=== PATIENT | female | born 1985 | race Caucasian/White ===

== ENCOUNTER 2018-10-25 18:46 | Emergency (ER) | payer MEDICAID ==
[2018-10-25] MEDS ORDERED: Morphine 2 MG/ML Syringe ONE (19:37)
[2018-10-25 20:55] VITALS: BP 120/68
--- NOTE | 2018-10-25 23:46 | ER ---
HISTORY OF PRESENT ILLNESS: A 33-year-old lady who comes in with her and mother with complaints of chest pressure that goes all the way across her chest and down into the upper left arm. The patient states this started about an hour ago as they were driving home. They were [place] when she just started getting these symptoms. She states that she is feeling nauseated a little. She is sweaty. She really denies chest pain, but states it is pressure. She rates her pain upon arrival, at least 4/10. The patient denies any history of coronary artery disease. She is a smoker. She is worried that she is having a heart attack. Her mother who was here with her had a heart attack in July that required 1 stent. The patient tells me her symptoms are exactly like her mother's. The patient denies any problems with vomiting or headache. PAST MEDICAL HISTORY: 1. History of asthma. 2. Migraines. 3. Upper respiratory infections. 4. Depression. The patient quit taking her depression medicine a few months ago, telling me it was Lexapro. They moved and she could not find it. OBJECTIVE: GENERAL APPEARANCE: The patient is awake and alert. She is in mild respiratory distress. VITAL SIGNS: Reviewed. Initial blood pressure is 137/77, pulse is 117. INITIAL TREATMENT: 4 baby aspirin were given to the patient and an EKG was obtained showing a tachycardic rhythm with no obvious ST elevation or depression. At this point, further physical exam was performed. HEENT: Oral mucous membranes moist. Tonsils not enlarged or injected. Pharynx not inflamed. NECK: Supple. LUNGS: Clear to auscultation. CARDIAC: Heart sounds distinct. S1, S2 present. Regular rate. No murmurs. SKIN: Warm and dry. On further questioning reveals that the patient was just coming home, they went to get a puppy, and she was relaxing with the puppy when her symptoms began. LAB AND X-RAY: CBC shows a slightly elevated white count of 12.5. The patient is on amoxicillin for an ear infection. Comprehensive metabolic panel is unremarkable. Troponin is normal. Further questioning at this point after assuring the patient that her cardiac workup was fine reveals that she did take 2 espressos today as well as an another power drink in addition to drinking multiple cups of coffee. This has resulted in caffeine overdose. Earlier on in the treatment plan, the patient was given 4 baby aspirin as previously mentioned. We also did give nitroglycerin x1 and morphine 1 mg. This brought the patient's discomfort from 4 or 5 down to 2 and while awaiting for test results, she states that she has minimal discomfort. The patient states that she is feeling very well. DIAGNOSIS: Caffeine overload. TREATMENT PLAN: The patient is to go home with her . No caffeine products tonight. She is to drink water. I advised the patient to have just a couple of cups of caffeinated coffee in the morning and activity should be as tolerated. Her symptoms should have largely resolved by morning. If her symptoms do not totally resolve or if any new symptoms develop, they are to call back or come back as soon as possible for further evaluation. They only live 3 blocks away. If her symptoms do resolve, a recheck should be in the clinic next Monday. The patient and her have no further questions. SHWETA/MIGUEL /[id number]
--- NOTE | 2018-10-26 07:13 | CR ---
DATE OF SERVICE: 10/25/2018 CLINICAL DATA: Chest pressure. PORTABLE AP CHEST: Comparison is made to a prior exam dated 06/14/2018. The patient is in an apical lordotic position. The heart size is normal. The lungs are clear. No pneumothorax. No pleural effusions. No evidence of acute intrathoracic disease. [id number] MTDD
== END 2018-10-25 20:19 | disposition home or self-care (01) ==
LOC: LB.ED 18:46
DX: T43.611A Poisoning by caffeine, accidental (unintentional), initial encounter (principal); R07.89 Other chest pain; J45.909 Unspecified asthma, uncomplicated; F32.9 Major depressive disorder, single episode, unspecified; F17.290 Nicotine dependence, other tobacco product, uncomplicated; Z79.899 Other long term (current) drug therapy; Z82.49 Family history of ischemic heart disease and other diseases of the circulatory system
CPT/HCPCS: 36415; 71045; 80053; 84484; 85025; 93005; 99285-25; J2270

== ENCOUNTER 2021-04-07 15:35 | Emergency (ER) | payer MEDICAID ==
[2021-04-07 15:49] VITALS: BP 123/89; PULSE 91
[2021-04-07] MEDS: LORazepam 1 MG Tab ONE ×2 (16:24→17:38)
[2021-04-07] MEDS: LORazepam 1 MG Tab PO ONE ×2 (16:25→17:23)
--- NOTE | 2021-04-07 18:28 | EDM.PDOCBH ---
ED HPI GENERAL MEDICAL PROBLEM - General Chief Complaint: Behavioral/Psych Stated Complaint: MENTAL HEALTH Time Seen by Provider: 04/07/21 15:45 - History of Present Illness INITIAL COMMENTS - FREE TEXT/NARRATIVE: Pt is here with her Mother with C/O suicidal thoughts. She tells me she does have a plan, but starts to cry and cannot continue. She is given Ativan 1 mg po, and is later able to tell me she has tried to commit suicide in the past. She is stressed out about marital issues and may be going thru a divorce soon. She has hx of cutting behavior, but not recently. - Related Data Allergies Allergy/AdvReac Type Severity Reaction Status Date / Time Tramadol Allergy Itching Uncoded 04/07/21 15:41 Home Meds: Home Meds estradioL [Estradiol] 0.5 mg PO DAILY 06/14/18 [History] Albuterol [Ventolin HFA] 1 - 2 puff INH Q4HR 06/16/18 [History] Cyclobenzaprine [Flexeril] 10 mg PO TID 04/07/21 [History] FLUoxetine HCl [Prozac] 10 mg PO DAILY 04/07/21 [History] Past Medical History HEENT History: Reports: None Cardiovascular History: Reports: None Respiratory History: Reports: Asthma Genitourinary History: Reports: None SOFTWARE DEVELOPMENT SPECIALIST History: Reports: Endometriosis, Musculoskeletal History: Reports: Back Pain, Chronic Neurological History: Reports: Migraines Psychiatric History: Reports: Anxiety, Depression - Past Surgical History HEENT Surgical History: Reports: Tonsillectomy Cardiovascular Surgical History: Reports: None Respiratory Surgical History: Reports: None GI Surgical History: Reports: Appendectomy, Cholecystectomy, Other (See Below) Other GI Surgeries/Procedures: Abdominal Laproscopies Female Surgical History: Reports: Hysterectomy, Salpingo-Oophorectomy Musculoskeletal Surgical History: Reports: None Social & Family History - Family History Family Medical History: No Pertinent Family History - Tobacco Use Tobacco Use Status *Q: Current Every Day Tobacco User Years of Tobacco use: 20 Packs/Tins Daily: 0.5 - Caffeine Use Caffeine Use: Reports: Energy Drinks, Soda Caffeine Use Comment: pt had coffee, and energy drink today, pt states she had a double shot of expresso today, rockstar drink - Recreational Drug Use Recreational Drug Use: Yes Drug Use in Last 12 Months: Yes Recreational Drug Type: Reports: Marijuana/Hashish Recreational Drug Use Frequency: Daily ED ROS GENERAL - Review of Systems Review Of Systems: Comprehensive ROS is negative, except as noted in HPI. Psychiatric: Reports: Suicidal Ideation ED EXAM, BEHAVIORAL HEALTH - Physical Exam Exam: See Below General Appearance: Moderate Distress, Other (easily crying and looking down alot.) COURSE, BEHAVIORAL HEALTH COMP - Course Vital Signs: Last Vital Signs Temp 99.3 F 04/07/21 15:46 Pulse 91 04/07/21 15:46 Resp 18 04/07/21 15:46 BP 123/89 04/07/21 15:46 Pulse Ox 97 04/07/21 15:46 Orders, Labs, Meds: Active Orders 24 hr Category Date Time Status Suicide Precautions [RC] .Per Facility Policy Care 04/07/21 16:36 Active Laboratory Tests 04/07/21 04/07/21 04/07/21 Range/Units 16:04 16:04 16:20 WBC 10.1 (4.0-11.0) K/uL RBC 4.67 (3.80-5.80) M/uL Hgb 14.6 (11.5-16.5) g/dL Hct 44.2 (37.0-47.0) % MCV 95 (76-96) fL MCH 31.3 (27.0-32.0) pg MCHC 33.0 (31.0-35.0) g/dL RDW 13.3 (11.0-16.0) % Plt Count 254 (150-500) K/uL MPV 10.9 H (6.0-10.0) fL Neut % (Auto) 63.4 (45.0-70.0) % Lymph % (Auto) 30.0 (20.0-40.0) % [place] % (Auto) 5.8 (3.0-10.0) % Eos % (Auto) 0.5 L (1.0-5.0) % Baso % (Auto) 0.3 (0.0-0.5) % Neut # (Auto) 6.41 (2.00-7.50) K/uL Lymph # (Auto) 3.04 (1.50-4.00) K/uL [place] # (Auto) 0.59 (0.20-0.80) K/uL Eos # (Auto) 0.05 (0.04-0.40) K/uL Baso # (Auto) 0.03 (0.02-0.10) K/uL Sodium (136-145) mmol/L Potassium (3.5-5.1) mmol/L Chloride (98-107) mmol/L Carbon Dioxide (21.0-32.0) mmol/L Anion Gap (5.0-15.0) mmol/L BUN (8-26) mg/dL Creatinine (0.55-1.02) mg/dL Est Cr Clr Drug Dosing Estimated GFR (MDRD) (>60) MLS/MIN BUN/Creatinine Ratio (6-25) Glucose (74-100) mg/dL Calcium (8.5-10.1) mg/dL Total Bilirubin (0.0-1.0) mg/dL AST (15-37) U/L ALT (12-78) U/L Alkaline Phosphatase (46-116) U/L Total Protein (6.4-8.2) g/dL Albumin (3.4-5.0) g/dL Globulin (2.2-4.2) g/dL Albumin/Globulin Ratio (0.8-2.0) TSH, Ultra Sensitive (0.358-3.740) uIU/mL Urine Color Yellow Urine Appearance Cloudy (CLEAR) Urine pH 7.0 (5.0-8.0) Ur Specific [place] 1.025 (1.003-1.030) Urine Protein Negative (NEGATIVE) mg/dL Urine Glucose (UA) Negative (NEGATIVE) mg/dL Urine Ketones Trace H (NEGATIVE) mg/dL Urine Occult Blood Trace-intact H (NEGATIVE) Urine Nitrite Negative (NEGATIVE) Urine Bilirubin Negative (NEGATIVE) Urine Urobilinogen 1.0 (0.2-1.0) E.U./dL Ur Leukocyte Esterase Negative (NEGATIVE) Urine RBC 0-5 H /HPF Urine WBC 0-5 H /HPF Ur Squamous Epith Cells Few /HPF Amorphous Sediment Many /HPF Urine Bacteria Few /HPF Urine Opiates Screen Negative (NEGATIVE) Ur Oxycodone Screen Negative (NEGATIVE) Urine Methadone Screen Negative (NEGATIVE) Ur Barbiturates Screen Negative (NEGATIVE) Ur Tricyclics Screen Negative (NEGATIVE) Ur Phencyclidine Scrn Negative (NEGATIVE) Ur Amphetamine Screen Negative (NEGATIVE) U Methamphetamines Scrn Negative (NEGATIVE) Urine MDMA Screen Negative (NEGATIVE) U Benzodiazepines Scrn Positive H (NEGATIVE) U Cocaine Metab Screen Negative (NEGATIVE) U Marijuana (THC) Screen Positive H (NEGATIVE) Ethyl Alcohol (<3.0) mg/dL SARS-CoV-2 RNA (CARLOS) (NEGATIVE) 04/07/21 04/07/21 04/07/21 Range/Units 16:20 16:20 16:25 WBC (4.0-11.0) K/uL RBC (3.80-5.80) M/uL Hgb (11.5-16.5) g/dL Hct (37.0-47.0) % MCV (76-96) fL MCH (27.0-32.0) pg MCHC (31.0-35.0) g/dL RDW (11.0-16.0) % Plt Count (150-500) K/uL MPV (6.0-10.0) fL Neut % (Auto) (45.0-70.0) % Lymph % (Auto) (20.0-40.0) % [place] % (Auto) (3.0-10.0) % Eos % (Auto) (1.0-5.0) % Baso % (Auto) (0.0-0.5) % Neut # (Auto) (2.00-7.50) K/uL Lymph # (Auto) (1.50-4.00) K/uL [place] # (Auto) (0.20-0.80) K/uL Eos # (Auto) (0.04-0.40) K/uL Baso # (Auto) (0.02-0.10) K/uL Sodium 142 (136-145) mmol/L Potassium 3.8 D (3.5-5.1) mmol/L Chloride 103 (98-107) mmol/L Carbon Dioxide 28.6 (21.0-32.0) mmol/L Anion Gap 14.2 (5.0-15.0) mmol/L BUN 10 D (8-26) mg/dL Creatinine 0.76 (0.55-1.02) mg/dL Est Cr Clr Drug Dosing TNP Estimated GFR (MDRD) > 60 (>60) MLS/MIN BUN/Creatinine Ratio 13.2 (6-25) Glucose 126 H (74-100) mg/dL Calcium 9.2 (8.5-10.1) mg/dL Total Bilirubin 0.4 D (0.0-1.0) mg/dL AST 19 (15-37) U/L ALT 45 (12-78) U/L Alkaline Phosphatase 65 (46-116) U/L Total Protein 7.6 (6.4-8.2) g/dL Albumin 4.2 (3.4-5.0) g/dL Globulin 3.4 (2.2-4.2) g/dL Albumin/Globulin Ratio 1.2 (0.8-2.0) TSH, Ultra Sensitive 0.578 D (0.358-3.740) uIU/mL Urine Color Urine Appearance (CLEAR) Urine pH (5.0-8.0) Ur Specific [place] (1.003-1.030) Urine Protein (NEGATIVE) mg/dL Urine Glucose (UA) (NEGATIVE) mg/dL Urine Ketones (NEGATIVE) mg/dL Urine Occult Blood (NEGATIVE) Urine Nitrite (NEGATIVE) Urine Bilirubin (NEGATIVE) Urine Urobilinogen (0.2-1.0) E.U./dL Ur Leukocyte Esterase (NEGATIVE) Urine RBC /HPF Urine WBC /HPF Ur Squamous Epith Cells /HPF Amorphous Sediment /HPF Urine Bacteria /HPF Urine Opiates Screen (NEGATIVE) Ur Oxycodone Screen (NEGATIVE) Urine Methadone Screen (NEGATIVE) Ur Barbiturates Screen (NEGATIVE) Ur Tricyclics Screen (NEGATIVE) Ur Phencyclidine Scrn (NEGATIVE) Ur Amphetamine Screen (NEGATIVE) U Methamphetamines Scrn (NEGATIVE) Urine MDMA Screen (NEGATIVE) U Benzodiazepines Scrn (NEGATIVE) U Cocaine Metab Screen (NEGATIVE) U Marijuana (THC) Screen (NEGATIVE) Ethyl Alcohol 3.0 (<3.0) mg/dL SARS-CoV-2 RNA (CRALOS) Negative (NEGATIVE) Medications Discontinued Medications Generic Name Dose Route Start Last Admin Trade Name Freq PRN Reason Stop Dose Admin Lorazepam 1 mg 04/07/21 16:18 04/07/21 16:25 Lorazepam 1 Mg Tab PO 04/07/21 16:19 1 mg ONETIME ONE Administration Lorazepam Confirm 04/07/21 16:29 04/07/21 16:24 Lorazepam 1 Mg Tab Administered 04/07/21 16:30 Not Given Dose 1 mg .ROUTE .STK-MED ONE Lorazepam 1 mg 04/07/21 17:22 04/07/21 17:23 Lorazepam 1 Mg Tab PO 04/07/21 17:23 1 mg ONETIME ONE Administration Lorazepam Confirm 04/07/21 17:34 04/07/21 17:38 Lorazepam 1 Mg Tab Administered 04/07/21 17:35 Not Given Dose 1 mg .ROUTE .STK-MED ONE Re-Assessment/Re-Exam: Tele-medicine was consulted and did a mental health exam. We discussed her condition after the eval. We both feel she needs inpatient treatment measures at this time. She was given another dose of Ativan 1 mg po to help calm her down. Labs are ok, with THC and Benzo's in her drug screen, otherwise nml findings. Covid is negative. Pt is willing to go somewhere for inpatient tx. Departure - Departure Time of Disposition: 19:00 Disposition: DC/Tfer to Psych Hosp/Unit 65 Clinical Impression: Suicidal behavior Qualifiers: Attempted self-injury: without attempted self-injury Qualified Code(s): R45.89 - Other symptoms and signs involving emotional state - Discharge Information *PRESCRIPTION DRUG MONITORING PROGRAM REVIEWED*: Yes *COPY OF PRESCRIPTION DRUG MONITORING REPORT IN PATIENT TERRENCE: Yes Referrals: Olu Rodriguez MD [Primary Care Provider] - Sepsis Event Note (ED) - Evaluation Sepsis Screening Result: No Definite Risk - Focused Exam Vital Signs: Vital Signs Temp Pulse Resp BP Pulse Ox 04/07/21 15:46 99.3 F 91 18 123/89 97 - My Orders Last 24 Hours: My Active Orders 04/07/21 16:36 Suicide Precautions [RC] .Per Facility Policy - Assessment/Plan Last 24 Hours: My Active Orders 04/07/21 16:36 Suicide Precautions [RC] .Per Facility Policy
== END 2021-04-07 19:11 ==
LOC: LB.ED 15:35
DX: R45.89 Other symptoms and signs involving emotional state (principal); Z88.5 Allergy status to narcotic agent; Z72.0 Tobacco use; Z20.822 Contact with and (suspected) exposure to COVID-19
CPT/HCPCS: 36415; 80053; 80307; 81001; 84443; 85025; 87635; 99285; A9270; U0002

== ENCOUNTER 2021-12-08 13:14 | Emergency (ER) | payer MEDICAID ==
[2021-12-08] MEDS ORDERED: Aspirin 81 MG Tab.Chew PO ONE (13:29)
[2021-12-08] MEDS ORDERED: Ondansetron 4 MG/2 ML SDV IVPUSH ONE (13:29)
[2021-12-08] MEDS ORDERED: Sodium Chloride 0.9% 1,000 ML IV ONE (13:43)
[2021-12-08] MEDS ORDERED: Ondansetron 4 MG/2 ML SDV ONE (13:54)
[2021-12-08] MEDS ORDERED: Nitroglycerin 0.4 MG Tab.SL SL ONE (14:06)
[2021-12-08 14:28] LABS: ESTIMATED GFR 110 mL/min (>60)
[2021-12-08 15:27] VITALS: BP 118/66; PULSE 71
== END 2021-12-08 15:15 | disposition home or self-care (01) ==
LOC: LB.ED 13:14
DX: R07.89 Other chest pain (principal); Z88.5 Allergy status to narcotic agent; Z20.822 Contact with and (suspected) exposure to COVID-19
CPT/HCPCS: 36415; 71045; 80053; 84484; 85025; 85610; 93005; 93010; 96361; 96374; 99282; 99285-25; A9270-GY; J2405; J7030; U0002

== ENCOUNTER 2022-04-07 21:15 | Emergency (ER) | payer MEDICAID ==
[2022-04-07] MEDS: Sodium Chloride 0.9% 500 ML IV ONE (21:45)
[2022-04-07] MEDS: diphenhydrAMINE 50 MG/ML SDV IVPUSH ONE (21:50)
[2022-04-07] MEDS: Ketorolac 30 MG/ML SDV IVPUSH ONE (21:50)
[2022-04-07] MEDS: Metoclopramide 10 MG/2 ML SDV IVPUSH ONE (21:50)
[2022-04-07] MEDS: Metoclopramide 10 MG/2 ML SDV IM ONE (22:01)
[2022-04-07 22:40] VITALS: BP 106/59; PULSE 71
== END 2022-04-07 22:25 | disposition home or self-care (01) ==
LOC: LB.ED 21:15
DX: G43.909 Migraine, unspecified, not intractable, without status migrainosus (principal); Z88.5 Allergy status to narcotic agent
CPT/HCPCS: 96361; 96374; 96375; 99283; J1200; J1885; J2765; J7040

== ENCOUNTER 2022-04-09 06:35 | Emergency (ER) | payer MEDICAID ==
[2022-04-09 06:47] VITALS: BP 142/95; PULSE 74
[2022-04-09] MEDS: Sodium Chloride 0.9% 500 ML IV ONE (07:07)
[2022-04-09] MEDS: diphenhydrAMINE 50 MG/ML SDV IVPUSH ONE (07:13)
[2022-04-09] MEDS: Metoclopramide 10 MG/2 ML SDV IVPUSH ONE (07:13)
[2022-04-09] MEDS: Ketorolac 60 MG/2 ML SDV IVPUSH ONE (07:14)
== END 2022-04-09 08:07 | disposition home or self-care (01) ==
LOC: LB.ED 06:35
DX: G43.909 Migraine, unspecified, not intractable, without status migrainosus (principal); F17.210 Nicotine dependence, cigarettes, uncomplicated; Z88.5 Allergy status to narcotic agent
CPT/HCPCS: 96374; 96375; 99283; J1200; J1885; J2765; J7040

== ENCOUNTER 2022-04-09 14:47 | Emergency (ER) | payer MEDICAID ==
[~2022-04-09 14:47] MED LIST: Ondansetron 4 MG Tab.DIS ONE; SUMAtriptan 25 MG Tab ONE
[2022-04-09 15:36] VITALS: BP 156/88; PULSE 67
[2022-04-09] MEDS: Prochlorperazine 10 MG/2 ML SDV IVPUSH ONE (15:55)
[2022-04-09] MEDS: SUMAtriptan 6 MG/0.5 ML SDV SUBCUT ONE (16:29)
[2022-04-09] MEDS: diphenhydrAMINE 50 MG/ML SDV IVPUSH ONE (16:48)
== END 2022-04-09 18:00 | disposition home or self-care (01) ==
LOC: LB.ED 14:47
DX: G43.909 Migraine, unspecified, not intractable, without status migrainosus (principal); Z88.5 Allergy status to narcotic agent; Z79.899 Other long term (current) drug therapy; Z90.49 Acquired absence of other specified parts of digestive tract; Z90.710 Acquired absence of both cervix and uterus
CPT/HCPCS: 96372; 96374; 96375; 99283-25; A9270-GY; J0780; J1200; J3030; Q0162

== ENCOUNTER 2022-04-10 18:25 | Emergency (ER) | payer MEDICAID ==
[2022-04-10] MEDS ORDERED: Sodium Chloride 0.9% 10 ML Syringe FLUSH PRN (18:39)
[2022-04-10] MEDS: diphenhydrAMINE 50 MG/ML SDV IVPUSH ONE (18:47)
[2022-04-10] MEDS: Prochlorperazine 10 MG/2 ML SDV IVPUSH ONE (18:49)
[2022-04-10] MEDS: Ketorolac 60 MG/2 ML SDV IVPUSH ONE (18:51)
[2022-04-10] MEDS: Acetaminophen 500 MG Tab PO ONE (19:25)
[2022-04-10 20:45] VITALS: BP 125/80; PULSE 64
== END 2022-04-10 20:05 | disposition home or self-care (01) ==
LOC: LB.ED 18:25 → SUPCPDRO 18:25 → LB.ED 20:05
DX: G43.909 Migraine, unspecified, not intractable, without status migrainosus (principal); Z88.5 Allergy status to narcotic agent
CPT/HCPCS: 96374; 96375; 99283; A9270; J0780; J1200; J1885

== ENCOUNTER 2022-04-11 02:15 | Emergency (ER) | payer MEDICAID ==
[2022-04-11] MEDS ORDERED: SUMAtriptan 6 MG/0.5 ML SDV SUBCUT ONE (02:32)
[2022-04-11] MEDS ORDERED: Ondansetron 4 MG Tab.DIS PO ONE (03:25)
[2022-04-11] MEDS ORDERED: Ketorolac 60 MG/2 ML SDV IM ONE (03:25)
[2022-04-11 03:59] VITALS: BP 133/69; PULSE 60
== END 2022-04-11 03:47 | disposition home or self-care (01) ==
LOC: LB.ED 02:15
DX: G43.909 Migraine, unspecified, not intractable, without status migrainosus (principal); Z88.5 Allergy status to narcotic agent; Z79.899 Other long term (current) drug therapy; Z90.49 Acquired absence of other specified parts of digestive tract; Z90.710 Acquired absence of both cervix and uterus
CPT/HCPCS: 70450; 96372; 99283; J1885; J3030; Q0162

== ENCOUNTER 2022-04-11 10:26 | Observation (INO) | payer MEDICAID ==
[2022-04-11] MEDS ORDERED: Sodium Chloride 0.9% 10 ML Syringe FLUSH PRN (11:04)
[2022-04-11] MEDS ORDERED: Ketorolac 60 MG/2 ML SDV IVPUSH ONE (11:05)
[2022-04-11] MEDS ORDERED: diphenhydrAMINE 50 MG/ML SDV IVPUSH ONE (11:06)
[2022-04-11] MEDS ORDERED: Metoclopramide 10 MG/2 ML SDV IV ONE (11:07)
[2022-04-11] MEDS ORDERED: Topiramate 25 MG Tab ONE (14:07)
[2022-04-11] MEDS ORDERED: Acetaminophen/HYDROcodone 325-10 MG Tab ONE (14:07)
[2022-04-11] MEDS: Nicotine 21 MG/24 Hr Patch TRDERM SCH (14:08)
[2022-04-11] MEDS: Topiramate 25 MG Tab PO SCH ×2 (14:08→19:49)
[2022-04-11] MEDS ORDERED: Nicotine 21 MG/24 Hr Patch ONE (14:08)
[2022-04-11] MEDS: Acetaminophen/HYDROcodone 325-10 MG Tab PO PRN ×2 (14:08→19:48)
[2022-04-11] MEDS: Ketorolac 30 MG/ML SDV IVPUSH PRN (18:01)
[2022-04-11] MEDS: Ondansetron 4 MG/2 ML SDV IV PRN (18:02)
[2022-04-12] MEDS: Ketorolac 30 MG/ML SDV IVPUSH PRN ×2 (00:31→08:24)
[2022-04-12] MEDS: Ondansetron 4 MG/2 ML SDV IV PRN ×2 (00:31→08:24)
[2022-04-12] MEDS: Acetaminophen/HYDROcodone 325-10 MG Tab PO PRN ×2 (04:39→10:55)
[2022-04-12] MEDS ORDERED: Estradiol 0.5 MG Tab PO SCH (08:00)
[2022-04-12] MEDS: Topiramate 25 MG Tab PO SCH (08:24)
[2022-04-12 08:34] VITALS: BP 110/72; PULSE 66
[2022-04-12] MEDS: Nicotine 21 MG/24 Hr Patch TRDERM SCH (08:49)
== END 2022-04-12 11:32 | disposition home or self-care (01) ==
LOC: LB.ED 10:26 → LB.MS 11:56
PROVIDERS: ADMIT Nurse Practitioner Family; ATTEND Nurse Practitioner Family
DX: G43.909 Migraine, unspecified, not intractable, without status migrainosus (principal); H53.149 Visual discomfort, unspecified; J45.909 Unspecified asthma, uncomplicated; F41.9 Anxiety disorder, unspecified; F32.A Depression, unspecified; Z20.822 Contact with and (suspected) exposure to COVID-19; Z88.8 Allergy status to other drugs, medicaments and biological substances; Z79.899 Other long term (current) drug therapy; Z98.890 Other specified postprocedural states
CPT/HCPCS: 87635; A9270; J1200; J1885; J2405; J2765; U0002

== ENCOUNTER 2022-04-12 12:36 | Emergency (ER) | payer MEDICAID ==
[2022-04-12] MEDS ORDERED: Orphenadrine 60 MG/2 ML Inj IV ONE (12:45)
[2022-04-12] MEDS ORDERED: Sodium Chloride 0.9% 10 ML Syringe FLUSH PRN (12:45)
[2022-04-12] MEDS ORDERED: Dexamethasone 4 MG/ML SDV IVPUSH ONE (12:48)
[2022-04-12] MEDS ORDERED: Dexamethasone 4 MG/ML SDV ONE (13:09)
[2022-04-12] MEDS ORDERED: Orphenadrine 60 MG/2 ML Inj ONE (13:09)
[2022-04-12] MEDS ORDERED: Prochlorperazine 10 MG/2 ML SDV IVPUSH ONE (13:21)
[2022-04-12] MEDS ORDERED: Prochlorperazine 10 MG/2 ML SDV ONE (13:33)
[2022-04-12] MEDS ORDERED: Sodium Chloride 0.9% 500 ML IV ONE (14:31)
[2022-04-12] MEDS ORDERED: Ketorolac 60 MG/2 ML SDV IVPUSH ONE (14:32)
[2022-04-12] MEDS ORDERED: Ketorolac 30 MG/ML SDV ONE (15:00)
[2022-04-12 15:24] VITALS: BP 138/80; PULSE 76
== END 2022-04-12 15:20 | disposition home or self-care (01) ==
LOC: LB.ED 12:36
DX: G43.909 Migraine, unspecified, not intractable, without status migrainosus (principal); R11.0 Nausea; Z79.899 Other long term (current) drug therapy; Z88.5 Allergy status to narcotic agent; Z90.49 Acquired absence of other specified parts of digestive tract; Z90.710 Acquired absence of both cervix and uterus
CPT/HCPCS: 96361; 96374; 96375; 99283; J0780; J1100; J1885; J2360; J7040

== ENCOUNTER 2022-04-18 06:17 | Emergency (ER) | payer MEDICAID ==
[2022-04-18 06:37] VITALS: BP 124/85; PULSE 80
[2022-04-18] MEDS ORDERED: Ketorolac 60 MG/2 ML SDV IM ONE (07:26)
== END 2022-04-18 08:23 | disposition home or self-care (01) ==
LOC: LB.ED 06:17
DX: G44.211 Episodic tension-type headache, intractable (principal); Z88.5 Allergy status to narcotic agent; Z79.899 Other long term (current) drug therapy; Z90.49 Acquired absence of other specified parts of digestive tract; Z90.710 Acquired absence of both cervix and uterus
CPT/HCPCS: 96372; 99283; J1885; 99281